=== PATIENT | male | born 1935 | race Caucasian/White ===

== ENCOUNTER 2017-02-01 15:02 | Emergency (ER) | payer MEDICARE, OTHER ==
--- NOTE | 2017-02-01 14:46 | EDM.PDOC ---
ED HPI GENERAL MEDICAL PROBLEM - General Chief Complaint: Cardiovascular Problem Stated Complaint: IN BY AMBULANCE Time Seen by Provider: 02/01/17 14:45 Source of Information: Reports: Patient, EMS, Old Records, RN, RN Notes Reviewed History Limitations: Reports: No Limitations - History of Present Illness INITIAL COMMENTS - FREE TEXT/NARRATIVE: Arrives from home by ambulance with report that pt's defibrillator fired while he was mowing the lawn. Pt states that just before it fired he suddenly felt nauseated, then lightheaded, and then "boom" it shocked him. Pt states he fell and layed on the lawn until the ambulance came. He denies chest pain or shortness of breath. He took Aspirin 325mg this morning. After the defib. fired he took a Nitro. 0.4mg SL x1. Pt states that now he feels completely normal. 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 AICD is a [employer] Onset: Sudden Duration: Resolved Prior to Arrival Location: Reports: Chest Improves with: Reports: None Worsens with: Reports: None Context: Reports: Activity Associated Symptoms: Reports: No Other Symptoms Treatments MANAGER REAL ESTATE: Reports: Aspirin, Nitroglycerin - Related Data Allergies Allergy/AdvReac Type Severity Reaction Status Date / Time No Known Allergies Allergy Verified 02/01/17 15:16 Home Meds: Home Meds B/P Pill 08/02/14 [History] Cholesterol Pill 08/02/14 [History] Past Medical History HEENT History: Reports: Impaired Vision Cardiovascular History: Reports: Arrhythmia, Automatic Implantable Cardioverter Defibrillators, Bypass, CAD, Heart Failure, High Cholesterol, Hypertension, Pacemaker - Past Surgical History Cardiovascular Surgical History: Reports: AICD, Coronary Artery Bypass Social & Family History - Family History Family Medical History: Noncontributory - Tobacco Use Smoking Status *Q: Never Smoker Second Hand Smoke Exposure: No - Caffeine Use Caffeine Use: Reports: Coffee - Recreational Drug Use Recreational Drug Use: No - Living Situation & Occupation Living situation: Reports: , with Spouse Occupation: Retired ED ROS GENERAL - Review of Systems Review Of Systems: ROS reveals no pertinent complaints other than HPI. ED EXAM, GENERAL - Physical Exam Exam: See Below Exam Limited By: No Limitations General Appearance: Alert, WD/WN, No Apparent Distress Eye Exam: Bilateral Eye: Normal Inspection Ears: Normal External Exam, Hearing Grossly Normal Nose: Normal Inspection, Normal Mucosa, No Blood Throat/Mouth: Normal Inspection, Normal Lips, Normal Teeth, Normal Gums, Normal Oropharynx, Normal Voice, No Airway Compromise Head: Atraumatic, Normocephalic Neck: Normal Inspection, Supple, Non-Tender, Full Range of Motion Respiratory/Chest: No Respiratory Distress, Lungs Clear, Normal Breath Sounds, No Accessory Muscle Use, Chest Non-Tender Cardiovascular: Normal Peripheral Pulses, Regular Rate, Rhythm, No Edema, No Gallop, No JVD, No Murmur, No Rub GI/Abdominal: Normal Bowel Sounds, Soft, Non-Tender, No Organomegaly, No Distention, No Abnormal Bruit Back Exam: Normal Inspection Extremities: Normal Inspection, Normal Range of Motion, Non-Tender, Normal Capillary Refill, No Pedal Edema Neurological: Alert, Oriented, CN II-XII Intact, Normal Cognition, Normal Gait, No Motor/Sensory Deficits Psychiatric: Normal Affect, Normal Mood Skin Exam: Warm, Dry, Intact, Normal Color, No Rash EKG INTERPRETATION EKG Date: 02/01/17 Time: 14:46 Rhythm: other (SR) Rate (beats/min): 76 [place]: normal P-wave: present QRS: LBBB ST-T: normal QT: normal NJ/PQ Interval: borderline prolongation of NJ interval Comparison: NA - no prior EKG Course - Vital Signs Last Recorded V/S: Last Vital Signs Temp 35.9 C 02/01/17 15:02 Pulse 79 02/01/17 15:02 Resp 13 02/01/17 15:02 BP 122/74 02/01/17 15:02 Pulse Ox 97 02/01/17 15:02 - Orders/Labs/Meds Orders: Active Orders 24 hr Category Date Time Status EKG 12 Lead [EKG Documentation Completion] [RC] STAT Care 02/01/17 14:46 Active Peripheral IV Care [RC] . DIRECTED Care 02/01/17 14:46 Active UA W/MICROSCOPIC [URIN] Stat Lab 02/01/17 14:46 Uncollected Sodium Chloride 0.9% [Saline Flush] Med 02/01/17 14:46 Active 10 ml FLUSH ASDIRECTED PRN Peripheral IV Insertion Adult [OM.PC] Stat Oth 02/01/17 14:46 Ordered Medication Orders Sodium Chloride (Saline Flush) 10 ml FLUSH ASDIRECTED PRN PRN Reason: Keep Vein Open Labs: Laboratory Tests 02/01/17 02/01/17 02/01/17 Range/Units 14:53 14:53 14:53 WBC 6.0 (5.0-10.0) 10^3/uL RBC 3.93 L (4.6-6.2) 10^6/uL Hgb 12.9 L (14.0-18.0) g/dL Hct 37.3 L (40.0-54.0) % MCV 94.9 (80-100) fL MCH 32.8 (27.0-34.0) pg MCHC 34.6 (33.0-35.0) g/dL Plt Count 177 (150-450) 10^3/uL Neut % (Auto) 52.8 (42.2-75.2) % Lymph % (Auto) 33.3 (20.5-50.1) % [place] % (Auto) 9.9 H (2-8) % Eos % (Auto) 3.5 H (1.0-3.0) % Baso % (Auto) 0.5 (0.0-1.0) % PT 10.4 (9.0-12.0) SEC INR 1.0 (0.9-1.2) APTT 24.8 (22.0-34.0) SEC Sodium 138 (135-145) mmol/L Potassium 3.5 L (3.6-5.0) mmol/L Chloride 103 (101-111) mmol/L Carbon Dioxide 26.0 (21.0-31.0) mmol/L Anion Gap 12.5 BUN 24 H (7-18) mg/dL Creatinine 1.1 (0.6-1.3) mg/dL Est Cr Clr Drug Dosing 59.77 mL/min Estimated GFR (MDRD) > 60 BUN/Creatinine Ratio 21.81 Glucose 186 H (74-105) mg/dL Calcium 8.5 (8.4-10.2) mg/dl Total Bilirubin 1.5 H (0.2-1.0) mg/dL AST 24 (10-42) IU/L ALT 16 (10-60) IU/L Alkaline Phosphatase 57 (42-121) IU/L Troponin I 0.02 (0.00-0.02) ng/ml B-Natriuretic Peptide 215 H (0-100) pg/ml Total Protein 6.5 L (6.7-8.2) g/dl Albumin 3.7 (3.2-5.5) g/dl Globulin 2.8 Albumin/Globulin Ratio 1.32 Meds: Medications Generic Name Dose Route Start Last Admin Trade Name Freq PRN Reason Stop Dose Admin Sodium Chloride 10 ml 02/01/17 14:46 Saline Flush FLUSH ASDIRECTED PRN Keep Vein Open Discontinued Medications Generic Name Dose Route Start Last Admin Trade Name Freq PRN Reason Stop Dose Admin Metoprolol Succinate 100 mg 02/01/17 15:43 Toprol Xl PO 02/01/17 15:44 ONETIME ONE - Radiology Interpretation Free Text/Narrative:: CXR: cardiomegaly, AICD, sternotomy wires, no acute process per Rad. report. 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 Pt refuses to be transferred to [facility]. Departure - Departure Time of Disposition: 15:40 Disposition: DC/Tfer to Acute Hospital 02 Reason for Transfer *Q: Primary PCI Indicated Condition: serious Clinical Impression: AICD discharge Arrhythmia Qualifiers: Arrhythmia type: unspecified cardiac arrhythmia Qualified Code(s): I49.9 - Cardiac arrhythmia, unspecified CAD (coronary artery disease) Qualifiers: Coronary Disease-Associated Artery/Lesion type: unspecified vessel or lesion type [place] vs. transplanted heart: [place] heart Associated angina: angina presence unspecified Qualified Code(s): I25.10 - Atherosclerotic heart disease of [place] coronary artery without angina pectoris Forms: ED Department Discharge, Interfacility Transfer EMTALA - My Orders Last 24 Hours: My Active Orders 02/01/17 14:46 EKG 12 Lead [EKG Documentation Completion] [RC] STAT Peripheral IV Care [RC] . DIRECTED UA W/MICROSCOPIC [URIN] Stat Sodium Chloride 0.9% [Saline Flush] 10 ml FLUSH ASDIRECTED PRN Peripheral IV Insertion Adult [OM.PC] Stat - Assessment/Plan Last 24 Hours: My Active Orders 02/01/17 14:46 EKG 12 Lead [EKG Documentation Completion] [RC] STAT Peripheral IV Care [RC] . DIRECTED UA W/MICROSCOPIC [URIN] Stat Sodium Chloride 0.9% [Saline Flush] 10 ml FLUSH ASDIRECTED PRN Peripheral IV Insertion Adult [OM.PC] Stat
[~2017-02-01 15:02] MED LIST: Sodium Chloride 0.9% 10 ML Syringe FLUSH PRN
--- NOTE | 2017-02-01 15:24 | CR ---
Clinical history: 81-year-old male chest pain. 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 Cardiac leads intact and no current cephalization of vascular flow, signs of alveolar edema or dependent pleural effusion. No lung mass, hilar lymphadenopathy or focal lobar pneumonia. No pneumothorax. CONCLUSION: No acute new cardiopulmonary abnormality since 18 October 2016 exam
[2017-02-01 15:29] LABS: CHLORIDE,CL 103 mmol/L (101-111); SODIUM,NA 138 mmol/L (135-145)
[2017-02-01] MEDS ORDERED: Metoprolol Succinate 50 MG Tab.ER PO ONE (15:43)
[2017-02-01 15:59] VITALS: BP 103/62
--- NOTE | 2017-02-02 14:51 | EKG ---
02/01/2017- RYAN HAAS - EKG per my reading shows left bundle-branch block with sinus rhythm. [facility] /[id number]
== END 2017-02-01 16:45 ==
LOC: DL.ED 15:02
DX: I49.9 Cardiac arrhythmia, unspecified (principal); I25.810 Atherosclerosis of coronary artery bypass graft(s) without angina pectoris; I11.0 Hypertensive heart disease with heart failure; I50.9 Heart failure, unspecified; E78.00 Pure hypercholesterolemia, unspecified; Z45.02 Encounter for adjustment and management of automatic implantable cardiac defibrillator
CPT/HCPCS: 36415; 71010; 80053; 81001; 83880; 84484; 85025; 85610; 85730; 93005; 93010; 99285; A9270; 99283

== ENCOUNTER 2017-03-12 14:23 | Emergency (ER) | payer MEDICARE, OTHER ==
--- NOTE | 2017-03-12 14:37 | EDM.PDOC ---
ED HPI GENERAL MEDICAL PROBLEM - General Chief Complaint: Cardiovascular Problem Stated Complaint: [id number] DEFIBULATOR WENT OFF BLOOD PRESSURE CHECK Time Seen by Provider: 03/12/17 14:25 Source of Information: Reports: Patient History Limitations: Reports: No Limitations - History of Present Illness INITIAL COMMENTS - FREE TEXT/NARRATIVE: This 81 yo male patient reports to the ED due to his AICD going off. The patient reports he was sitting in a chair at the time of the discharge. The patient had a similar incident on 02/01/17. 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 Har[facility] in [place]. Onset: Today Onset Date: 03/12/17 Onset Time: 13:00 Duration: Resolved Prior to Arrival Location: Reports: Chest Quality: Reports: Ache, Dull Severity: Moderate Improves with: Reports: None Worsens with: Reports: None Associated Symptoms: Reports: No Other Symptoms - Related Data Allergies Allergy/AdvReac Type Severity Reaction Status Date / Time No Known Allergies Allergy Verified 02/01/17 15:16 Home Meds: Home Meds Aspirin 325 mg PO DAILY 02/01/17 [History] Lisinopril/Hydrochlorothiazide [Lisinopril-Hctz 20-12.5 mg Tab] 1 tab PO DAILY 02/01/17 [History] Melatonin 1 tab PO DAILY 02/01/17 [History] Metoprolol Succinate [Toprol XL] 100 mg PO BID 02/01/17 [History] Multivitamin with Minerals [Multiple Vitamin] 1 tab PO DAILY 02/01/17 [History] Nitroglycerin [Nitrostat] 1 tab SL ASDIRECTED 02/01/17 [History] PARoxetine HCl [Paroxetine HCl] 30 mg PO DAILY 02/01/17 [History] Rosuvastatin Calcium 40 mg PO DAILY 02/01/17 [History] Tamsulosin [Flomax] 0.4 mg PO DAILY 02/01/17 [History] Past Medical History HEENT History: Reports: Impaired Vision Cardiovascular History: Reports: Arrhythmia, Automatic Implantable Cardioverter Defibrillators, Bypass, CAD, Heart Failure, High Cholesterol, Hypertension, Pacemaker - Past Surgical History Cardiovascular Surgical History: Reports: AICD, Coronary Artery Bypass Social & Family History - Family History Family Medical History: Noncontributory - Tobacco Use Smoking Status *Q: Never Smoker Second Hand Smoke Exposure: No - Caffeine Use Caffeine Use: Reports: Coffee - Recreational Drug Use Recreational Drug Use: No - Living Situation & Occupation Living situation: Reports: , with Spouse Occupation: Retired ED ROS GENERAL - Review of Systems Review Of Systems: ROS reveals no pertinent complaints other than HPI. ED EXAM, GENERAL - Physical Exam Exam: See Below Exam Limited By: No Limitations General Appearance: Alert, WD/WN, No Apparent Distress Eye Exam: Bilateral Eye: EOMI, Normal Inspection, PERRL Ears: Normal External Exam, Normal Canal, Hearing Grossly Normal, Normal TMs Nose: Normal Inspection, Normal Mucosa, No Blood Throat/Mouth: Normal Inspection, Normal Lips, Normal Teeth, Normal Gums, Normal Oropharynx, Normal Voice, No Airway Compromise Head: Atraumatic, Normocephalic Neck: Normal Inspection, Supple, Non-Tender, Full Range of Motion Respiratory/Chest: No Respiratory Distress, Lungs Clear, Normal Breath Sounds, No Accessory Muscle Use, Chest Non-Tender Cardiovascular: Normal Peripheral Pulses, Regular Rate, Rhythm, No Edema, No Gallop, No JVD, No Murmur, No Rub GI/Abdominal: Normal Bowel Sounds, Soft, Non-Tender, No Organomegaly, No Distention, No Abnormal Bruit, No Mass (Male) Exam: Deferred Rectal (Males) Exam: Deferred Back Exam: Normal Inspection, Full Range of Motion, NT Extremities: Normal Inspection, Normal Range of Motion, Non-Tender, Normal Capillary Refill, No Pedal Edema Neurological: Alert, Oriented, CN II-XII Intact, Normal Cognition, Normal Gait, Normal Reflexes, No Motor/Sensory Deficits Psychiatric: Normal Affect, Normal Mood Skin Exam: Warm, Dry, Intact, Normal Color, No Rash Lymphatic: No Adenopathy Course - Vital Signs Last Recorded V/S: Last Vital Signs Temp 35.9 C 03/12/17 14:46 Pulse 62 03/12/17 14:46 Resp 24 H 03/12/17 14:46 BP 149/93 H 03/12/17 14:46 Pulse Ox 96 03/12/17 14:46 - Orders/Labs/Meds Orders: Active Orders 24 hr Category Date Time Status EKG Documentation Completion [RC] URGENT Care 03/12/17 14:35 Active Labs: Laboratory Tests 03/12/17 03/12/17 03/12/17 Range/Units 14:50 14:50 14:50 WBC 6.2 (5.0-10.0) 10^3/uL RBC 4.03 L (4.6-6.2) 10^6/uL Hgb 13.5 L (14.0-18.0) g/dL Hct 38.6 L (40.0-54.0) % MCV 95.8 (80-100) fL MCH 33.5 (27.0-34.0) pg MCHC 35.0 (33.0-35.0) g/dL Plt Count 159 (150-450) 10^3/uL Neut % (Auto) 67.1 (42.2-75.2) % Lymph % (Auto) 20.4 L (20.5-50.1) % [place] % (Auto) 9.6 H (2-8) % Eos % (Auto) 2.4 (1.0-3.0) % Baso % (Auto) 0.5 (0.0-1.0) % Sodium 136 (135-145) mmol/L Potassium 3.7 (3.6-5.0) mmol/L Chloride 99 L (101-111) mmol/L Carbon Dioxide 25.0 (21.0-31.0) mmol/L Anion Gap 15.7 BUN 17 (7-18) mg/dL Creatinine 1.0 (0.6-1.3) mg/dL Est Cr Clr Drug Dosing 65.74 mL/min Estimated GFR (MDRD) > 60 BUN/Creatinine Ratio 17.00 Glucose 185 H (74-105) mg/dL Calcium 8.8 (8.4-10.2) mg/dl Magnesium 1.7 L (1.8-2.5) mg/dL Total Bilirubin 1.8 H (0.2-1.0) mg/dL AST 27 (10-42) IU/L ALT 18 (10-60) IU/L Alkaline Phosphatase 57 (42-121) IU/L Troponin I 0.02 (0.00-0.02) ng/ml Total Protein 6.5 L (6.7-8.2) g/dl Albumin 3.8 (3.2-5.5) g/dl Globulin 2.7 Albumin/Globulin Ratio 1.41 Departure - Departure Time of Disposition: 16:20 Disposition: DC/Tfer to [facility] 02 Reason for Transfer *Q: Other Condition: Fair Clinical Impression: AICD discharge Forms: Interfacility Transfer EMTALA Care Plan Goals: Discussed the history, examination, EKG and lab results with Dr. Magaña (Cardiology ) and Dr. Escalera (Hospitalist) in [facility]. Dr. Escalera accepted the patient for continued evaluation and management. The patient will be transported by [facility]. - My Orders Last 24 Hours: My Active Orders 03/12/17 14:35 EKG Documentation Completion [RC] URGENT - Assessment/Plan Last 24 Hours: My Active Orders 03/12/17 14:35 EKG Documentation Completion [RC] URGENT
[2017-03-12 15:19] LABS: CHLORIDE,CL 99 mmol/L (101-111); SODIUM,NA 136 mmol/L (135-145)
--- NOTE | 2017-03-12 15:30 | CR ---
CLINICAL HISTORY: 81-year-old male emergency department (defibrillator "went off"). INTERPRETATION: AP portable chest film reveals chronic borderline cardiomegaly without new signs of alveolar edema or dependent pleural effusion (heart failure). Cardiac pacemaker leads intact in this patient with sternotomy wires. The position of the pacer lead s unchanged since 22 February 2017 exam. Small nodule in the periphery of the right chest also unchanged, i.e., probable granuloma. No new lung mass, hilar lymphadenopathy or focal lobar pneumonia. No atelectasis/collapse. No pneumo thorax. CONCLUSION: No acute new cardiopulmonary abnormality.
[2017-03-12 16:16] VITALS: BP 163/91
--- NOTE | 2017-03-13 19:20 | EKG ---
03/12/2017 - RYAN HAAS I reviewed the EKG and agree with the machine's reading. [facility] /[id number]
== END 2017-03-12 16:50 ==
LOC: DL.ED 14:23
DX: T82.198A Other mechanical complication of other cardiac electronic device, initial encounter (principal); H54.7 Unspecified visual loss; E78.00 Pure hypercholesterolemia, unspecified; I11.0 Hypertensive heart disease with heart failure; I50.9 Heart failure, unspecified; I25.10 Atherosclerotic heart disease of native coronary artery without angina pectoris; Z79.82 Long term (current) use of aspirin; Z79.899 Other long term (current) drug therapy; Z95.1 Presence of aortocoronary bypass graft
CPT/HCPCS: 36415; 71010; 80053; 83735; 84484; 85025; 93005; 93010; 99285

== ENCOUNTER 2017-04-13 07:36 | Emergency (ER) | payer MEDICARE, OTHER ==
[2017-04-13] MEDS ORDERED: methylPREDNISolone Sodium Succinate 125 MG/2 ML SDV IVPUSH ONE (07:39)
[2017-04-13] MEDS ORDERED: diphenhydrAMINE 50 MG/ML SDV IVPUSH ONE (07:39)
--- NOTE | 2017-04-13 08:20 | EDM.PDOC ---
ED HPI GENERAL MEDICAL PROBLEM - General Chief Complaint: Allergic Reaction Stated Complaint: ALLERGIC REACTION, TONGUE SWOLLEN Time Seen by Provider: 04/13/17 07:36 Source of Information: Reports: Patient History Limitations: Reports: No Limitations - History of Present Illness INITIAL COMMENTS - FREE TEXT/NARRATIVE: This 81 yo male patient reports to the ED with swelling of his tongue and increased difficulties breathing. The patient reports he was started on Amiodarone about 1 month ago and has been taking it on a regular basis. This morning at 0500 the patient started to notice some swelling of his tongue. The patient reports no history of allergic reactions in the past. The patient reports no known bites or stings. The patient has not eaten any different foods and has not taken any new medications. Onset: Today Onset Date: 04/13/17 Onset Time: 05:00 Duration: Constant, Getting Worse Location: Reports: Face Quality: Reports: Dull, Pressure Severity: Severe Improves with: Reports: None Worsens with: Reports: None Context: Reports: Other Associated Symptoms: Reports: Other - Related Data Allergies Allergy/AdvReac Type Severity Reaction Status Date / Time No Known Allergies Allergy Verified 04/13/17 08:04 Home Meds: Home Meds Aspirin 325 mg PO DAILY 02/01/17 [History] Lisinopril/Hydrochlorothiazide [Lisinopril-Hctz 20-12.5 mg Tab] 2 tab PO DAILY 02/01/17 [History] Melatonin 1 tab PO DAILY 02/01/17 [History] Metoprolol Succinate [Toprol XL] 100 mg PO BID 02/01/17 [History] Multivitamin with Minerals [Multiple Vitamin] 1 tab PO DAILY 02/01/17 [History] Nitroglycerin [Nitrostat] 1 tab SL ASDIRECTED 02/01/17 [History] PARoxetine HCl [Paroxetine HCl] 30 mg PO DAILY 02/01/17 [History] Rosuvastatin Calcium 40 mg PO DAILY 02/01/17 [History] Tamsulosin [Flomax] 0.4 mg PO DAILY 02/01/17 [History] Amiodarone [Cordarone] 400 mg PO DAILY 04/13/17 [History] Magnesium Oxide [Magnesium] 400 mg PO DAILY 04/13/17 [History] Potassium Chloride 10 meq PO DAILY 04/13/17 [History] Past Medical History HEENT History: Reports: Impaired Vision Cardiovascular History: Reports: Arrhythmia, Automatic Implantable Cardioverter Defibrillators, Bypass, CAD, Heart Failure, High Cholesterol, Hypertension, Pacemaker Respiratory History: Reports: COPD - Past Surgical History Cardiovascular Surgical History: Reports: AICD, Coronary Artery Bypass Social & Family History - Family History Family Medical History: Noncontributory - Tobacco Use Smoking Status *Q: Never Smoker Second Hand Smoke Exposure: No - Caffeine Use Caffeine Use: Reports: Coffee - Alcohol Use Days Per Week of Alcohol Use: 3 Number of Drinks Per Day: 1 Total Drinks Per Week: 3 - Recreational Drug Use Recreational Drug Use: No - Living Situation & Occupation Living situation: Reports: , with Spouse Occupation: Retired ED ROS ALLERGIC REACTION - Review of Systems Review Of Systems: ROS reveals no pertinent complaints other than HPI. ED EXAM GENERAL NO PERIP PULSE - Physical Exam Exam: See Below Exam Limited By: No Limitations General Appearance: Alert, WD/WN, Moderate Distress Eye Exam: Bilateral Eye: EOMI, Normal Inspection, PERRL Ears: Normal External Exam, Normal Canal, Hearing Grossly Normal, Normal TMs Nose: Normal Inspection, Normal Mucosa, No Blood Throat/Mouth: Other (The patient's tongue was swollen outside ) Head: Atraumatic, Normocephalic Neck: Normal Inspection, Supple, Non-Tender, Full Range of Motion Respiratory/Chest: No Respiratory Distress, Lungs Clear, Normal Breath Sounds, No Accessory Muscle Use, Chest Non-Tender Cardiovascular: No Edema, No Gallop, No JVD, No Murmur, No Rub, Bradycardia GI/Abdominal: Normal Bowel Sounds, Soft, Non-Tender, No Organomegaly, No Distention, No Abnormal Bruit, No Mass (Male) Exam: Deferred Rectal (Males) Exam: Deferred Back Exam: Normal Inspection, Full Range of Motion, NT Extremities: Normal Inspection, Normal Range of Motion, Non-Tender, Normal Capillary Refill, No Pedal Edema Neurological: Alert, Oriented, CN II-XII Intact, Normal Cognition, Normal Gait, Normal Reflexes, No Motor/Sensory Deficits Psychiatric: Normal Affect, Normal Mood Skin Exam: Warm, Intact, Normal Color, No Rash Lymphatic: No Adenopathy Course - Vital Signs Last Recorded V/S: Last Vital Signs Temp 36.3 C 04/13/17 07:36 Pulse 48 L 04/13/17 07:45 Resp 14 04/13/17 08:30 BP 166/71 H 04/13/17 08:30 Pulse Ox 95 04/13/17 08:30 - Orders/Labs/Meds Meds: Medications Discontinued Medications Generic Name Dose Route Start Last Admin Trade Name Janet PRN Reason Stop Dose Admin Diphenhydramine HCl 50 mg 04/13/17 07:39 04/13/17 07:38 Benadryl IVPUSH 04/13/17 07:40 50 mg ONETIME ONE Administration Methylprednisolone Sodium Succinate 125 mg 04/13/17 07:39 04/13/17 07:38 Solu-Medrol IVPUSH 04/13/17 07:40 125 mg ONETIME ONE Administration Departure - Departure Time of Disposition: 09:43 Disposition: Home, Self-Care 01 Condition: Fair Clinical Impression: Angioedema Qualifiers: Encounter type: initial encounter Qualified Code(s): T78.3XXA - Angioneurotic edema, initial encounter - Discharge Information Instructions: Angioedema, [id number] Forms: ED Department Discharge Care Plan Goals: The patient was advised of the examination results during the visit. The patient was given IV Benadryl and IV Solu-Medrol while in the ED. The patient reports feeling better after the medications. The patient was discharged with a script for Prednisone (20 mg) #10 to take 2 by mouth daily for 5 days and Femotidine (20 mg) #20 to take 1 by mouth 2 times per day for 10 days. If the patient has any additional symptoms or concerns, the patient should follow-up with his primary care facility or return to the emergency department.
[2017-04-13 09:20] VITALS: BP 166/71
[2017-04-13] MEDS ORDERED: Famotidine 20 MG Tab PO ONE (09:47)
== END 2017-04-13 10:03 | disposition home or self-care (01) ==
LOC: DL.ED 07:36
DX: T78.3XXA Angioneurotic edema, initial encounter (principal); H54.7 Unspecified visual loss; J44.9 Chronic obstructive pulmonary disease, unspecified; I11.0 Hypertensive heart disease with heart failure; I50.9 Heart failure, unspecified; I25.10 Atherosclerotic heart disease of native coronary artery without angina pectoris; E78.00 Pure hypercholesterolemia, unspecified; Z79.82 Long term (current) use of aspirin; Z79.899 Other long term (current) drug therapy; Z95.1 Presence of aortocoronary bypass graft
CPT/HCPCS: 96374; 96375; 99284; A9270; J1200; J2930

== ENCOUNTER 2017-04-25 09:36 | Emergency (ER) | payer MEDICARE, OTHER ==
[2017-04-25 09:46] VITALS: BP 159/91
[2017-04-25] MEDS ORDERED: Oxymetazoline 0.05% Nasal Spray 15 ML Bottle NAS ONE (11:41)
--- NOTE | 2017-04-25 12:13 | EDM.PDOC ---
ED HPI GENERAL MEDICAL PROBLEM - General Chief Complaint: ENT Problem Stated Complaint: [id number] NOSE BLEED Time Seen by Provider: 04/25/17 12:07 Source of Information: Reports: Patient History Limitations: Reports: No Limitations - History of Present Illness INITIAL COMMENTS - FREE TEXT/NARRATIVE: 81 yo male presents with intermittent nose bleed x 2 hours. States that he is having a hard time controlling it so he came in. Denies lightheadedness or dizziness. No other complaints Onset: Today, Sudden Duration: Intermittent Location: Reports: Face Quality: Reports: Ache Severity: Mild Improves with: Reports: Other (pressure) Worsens with: Reports: Movement Associated Symptoms: Reports: No Other Symptoms - Related Data Allergies Allergy/AdvReac Type Severity Reaction Status Date / Time atorvastatin [From Lipitor] Allergy Pain Verified 04/25/17 09:46 Home Meds: Home Meds Aspirin 325 mg PO DAILY 02/01/17 [History] Lisinopril/Hydrochlorothiazide [Lisinopril-Hctz 20-12.5 mg Tab] 2 tab PO DAILY 02/01/17 [History] Melatonin 1 tab PO DAILY 02/01/17 [History] Metoprolol Succinate [Toprol XL] 100 mg PO BID 02/01/17 [History] Multivitamin with Minerals [Multiple Vitamin] 1 tab PO DAILY 02/01/17 [History] Nitroglycerin [Nitrostat] 1 tab SL ASDIRECTED 02/01/17 [History] PARoxetine HCl [Paroxetine HCl] 30 mg PO DAILY 02/01/17 [History] Rosuvastatin Calcium 40 mg PO DAILY 02/01/17 [History] Tamsulosin [Flomax] 0.4 mg PO DAILY 02/01/17 [History] Amiodarone [Cordarone] 400 mg PO DAILY 04/13/17 [History] Magnesium Oxide [Magnesium] 400 mg PO BID 04/13/17 [History] Potassium Chloride 10 meq PO DAILY 04/13/17 [History] Past Medical History HEENT History: Reports: Impaired Vision Cardiovascular History: Reports: Arrhythmia, Automatic Implantable Cardioverter Defibrillators, Bypass, CAD, Heart Failure, High Cholesterol, Hypertension, Pacemaker Respiratory History: Reports: COPD Gastrointestinal History: Reports: None Genitourinary History: Reports: None Musculoskeletal History: Reports: None Neurological History: Reports: None Psychiatric History: Reports: None Endocrine/Metabolic History: Reports: None Hematologic History: Reports: None Immunologic History: Reports: None Oncologic (Cancer) History: Reports: None Dermatologic History: Reports: None - Infectious Disease History Infectious Disease History: Reports: Measles - Past Surgical History Cardiovascular Surgical History: Reports: AICD, Coronary Artery Bypass Social & Family History - Family History Family Medical History: Noncontributory - Tobacco Use Smoking Status *Q: Never Smoker Second Hand Smoke Exposure: No - Caffeine Use Caffeine Use: Reports: Coffee - Alcohol Use Days Per Week of Alcohol Use: 3 Number of Drinks Per Day: 1 Total Drinks Per Week: 3 - Recreational Drug Use Recreational Drug Use: No - Living Situation & Occupation Living situation: Reports: , with Spouse Occupation: Retired ED ROS ENT - Review of Systems Review Of Systems: ROS reveals no pertinent complaints other than HPI. ED EXAM, ENT - Physical Exam Exam: See Below Exam Limited By: No Limitations General Appearance: Alert, WD/WN, No Apparent Distress Nose: Active Bleeding (no septal injury noted, unable to identify bleeding vessel. Direct pressure applied) Mouth/Throat: Normal Inspection, Normal Gums, Normal Lips, Normal Oropharynx, Normal Teeth Head: Atraumatic, Normocephalic Respiratory/Chest: No Respiratory Distress, Lungs Clear, Normal Breath Sounds, No Accessory Muscle Use, Chest Non-Tender Cardiovascular: Normal Peripheral Pulses, Regular Rate, Rhythm, No Edema, No Gallop, No JVD, No Murmur, No Rub Neurological: Alert, Oriented, CN II-XII Intact, Normal Cognition, Normal Gait, No Motor/Sensory Deficits Course - Vital Signs Last Recorded V/S: Last Vital Signs Temp 97 F 04/25/17 09:41 Pulse 55 L 04/25/17 09:41 Resp 16 04/25/17 09:41 BP 159/91 H 04/25/17 09:41 Pulse Ox 98 04/25/17 09:41 - Orders/Labs/Meds Labs: Laboratory Tests 04/25/17 04/25/17 Range/Units 10:58 10:58 WBC 9.1 (5.0-10.0) 10^3/uL RBC 4.40 L (4.6-6.2) 10^6/uL Hgb 14.5 (14.0-18.0) g/dL Hct 43.1 (40.0-54.0) % MCV 98.0 (80-100) fL MCH 33.0 (27.0-34.0) pg MCHC 33.6 (33.0-35.0) g/dL Plt Count 164 (150-450) 10^3/uL Neut % (Auto) 75.6 H (42.2-75.2) % Lymph % (Auto) 12.8 L (20.5-50.1) % [place] % (Auto) 9.0 H (2-8) % Eos % (Auto) 2.3 (1.0-3.0) % Baso % (Auto) 0.3 (0.0-1.0) % Sodium 142 (135-145) mmol/L Potassium 4.7 (3.6-5.0) mmol/L Chloride 101 (101-111) mmol/L Carbon Dioxide 29.0 (21.0-31.0) mmol/L Anion Gap 16.7 BUN 20 H (7-18) mg/dL Creatinine 1.3 (0.6-1.3) mg/dL Est Cr Clr Drug Dosing 50.57 mL/min Estimated GFR (MDRD) 53 Glucose 153 H (74-105) mg/dL Calcium 9.5 (8.4-10.2) mg/dl Meds: Medications Discontinued Medications Generic Name Dose Route Start Last Admin Trade Name Janet PRN Reason Stop Dose Admin Oxymetazoline HCl 1 ml 04/25/17 11:41 04/25/17 11:49 Afrin Original 0.05% Nasal Henriette SELMA 04/25/17 11:42 1 ml ONETIME ONE Administration - Re-Assessments/Exams Free Text/Narrative Re-Assessment/Exam: 04/25/17 12:10 Applied direct pressure with successful cessation of bleeding Departure - Departure Time of Disposition: 12:10 Disposition: Home, Self-Care 01 Condition: Good Clinical Impression: Epistaxis - Discharge Information Instructions: Nosebleed Referrals: Odilon Healy MD [Primary Care Provider] - Additional Instructions: Keep nasal passages moist as to decrease risk of bleeding. try not to blow your nose the next few days. use the afrin spray every 12 hours as needed for dryness for the next 3 days. Use petroleum gauze/tissue to keep nasal passages moist in between the spray. If bleeding returns, use direct pressure to stop. Return for any worsening symptoms or uncontrolled bleeding.
== END 2017-04-25 12:15 | disposition home or self-care (01) ==
LOC: DL.ED 09:36
DX: R04.0 Epistaxis (principal); H54.7 Unspecified visual loss; E78.00 Pure hypercholesterolemia, unspecified; I11.0 Hypertensive heart disease with heart failure; I50.9 Heart failure, unspecified; Z95.1 Presence of aortocoronary bypass graft; Z88.8 Allergy status to other drugs, medicaments and biological substances; Z79.899 Other long term (current) drug therapy; Z79.82 Long term (current) use of aspirin
CPT/HCPCS: 36415; 80048; 85025; 99284; A9270

== ENCOUNTER 2017-06-15 12:18 | Emergency (ER) | payer MEDICARE, OTHER ==
[2017-06-15 13:33] VITALS: BP 134/63
--- NOTE | 2017-06-15 13:49 | EDM.PDOC ---
ED HPI GENERAL MEDICAL PROBLEM - General Chief Complaint: Syncope Stated Complaint: SENT FROM [facility] Time Seen by Provider: 06/15/17 12:42 Source of Information: Reports: Patient, Provider (Dr. Aguilar) History Limitations: Reports: No Limitations - History of Present Illness INITIAL COMMENTS - FREE TEXT/NARRATIVE: 81 yo white male w/ PMHx. Ischemic Cardiomyopathy w/ ICD implanted stated that yesterday while pumping gas he became un-responsive X few seconds. Denies CP Denies Dizziness and Denies SOB Onset Date: 06/14/17 Onset Time: 12:00 Duration: Day(s): Location: Reports: Generalized Severity: Moderate Improves with: Reports: None Worsens with: Reports: None Context: Reports: Other (PMHx. Ischemic Cardiomyopathy ) Associated Symptoms: Reports: Syncope - Related Data Allergies Allergy/AdvReac Type Severity Reaction Status Date / Time atorvastatin [From Lipitor] Allergy Pain Verified 06/15/17 12:58 Home Meds: Home Meds Aspirin 325 mg PO DAILY 02/01/17 [History] Lisinopril/Hydrochlorothiazide [Lisinopril-Hctz 20-12.5 mg Tab] 2 tab PO DAILY 02/01/17 [History] Melatonin 1 tab PO DAILY 02/01/17 [History] Metoprolol Succinate [Toprol XL] 100 mg PO BID 02/01/17 [History] Multivitamin with Minerals [Multiple Vitamin] 1 tab PO DAILY 02/01/17 [History] Nitroglycerin [Nitrostat] 1 tab SL ASDIRECTED 02/01/17 [History] PARoxetine HCl [Paroxetine HCl] 30 mg PO DAILY 02/01/17 [History] Rosuvastatin Calcium 40 mg PO DAILY 02/01/17 [History] Tamsulosin [Flomax] 0.4 mg PO DAILY 02/01/17 [History] Amiodarone [Cordarone] 400 mg PO DAILY 04/13/17 [History] Magnesium Oxide [Magnesium] 400 mg PO BID 04/13/17 [History] Potassium Chloride 10 meq PO DAILY 04/13/17 [History] Budesonide/Formoterol Fumarate [Symbicort 80-4.5 Mcg Inhaler] 2 puff IH BID [History] Past Medical History HEENT History: Reports: Impaired Vision Cardiovascular History: Reports: Arrhythmia, Automatic Implantable Cardioverter Defibrillators, Bypass, CAD, Heart Failure, High Cholesterol, Hypertension, Pacemaker Respiratory History: Reports: COPD Gastrointestinal History: Reports: None Genitourinary History: Reports: None Musculoskeletal History: Reports: None Neurological History: Reports: None Psychiatric History: Reports: None Endocrine/Metabolic History: Reports: None Hematologic History: Reports: None Immunologic History: Reports: None Oncologic (Cancer) History: Reports: None Dermatologic History: Reports: None - Infectious Disease History Infectious Disease History: Reports: Measles - Past Surgical History Cardiovascular Surgical History: Reports: AICD, Coronary Artery Bypass Social & Family History - Family History Family Medical History: Noncontributory - Tobacco Use Smoking Status *Q: Never Smoker Second Hand Smoke Exposure: No - Caffeine Use Caffeine Use: Reports: Coffee - Alcohol Use Days Per Week of Alcohol Use: 3 Number of Drinks Per Day: 1 Total Drinks Per Week: 3 - Recreational Drug Use Recreational Drug Use: No - Living Situation & Occupation Living situation: Reports: , with Spouse Occupation: Retired ED ROS GENERAL - Review of Systems Review Of Systems: See Below Constitutional: Reports: No Symptoms HEENT: Reports: No Symptoms Respiratory: Reports: No Symptoms Cardiovascular: Reports: No Symptoms Endocrine: Reports: No Symptoms GI/Abdominal: Reports: No Symptoms : Reports: No Symptoms Musculoskeletal: Reports: No Symptoms Skin: Reports: No Symptoms Neurological: Reports: Syncope Psychiatric: Reports: No Symptoms Hematologic/Lymphatic: Reports: No Symptoms Immunologic: Reports: No Symptoms ED EXAM, GENERAL - Physical Exam Exam: See Below Exam Limited By: No Limitations General Appearance: Alert, No Apparent Distress Eye Exam: Bilateral Eye: EOMI, PERRL Ears: Normal External Exam Nose: Normal Inspection Throat/Mouth: Normal Inspection, Normal Lips Head: Atraumatic, Normocephalic Neck: Normal Inspection, Supple Respiratory/Chest: No Respiratory Distress, Lungs Clear Cardiovascular: Normal Peripheral Pulses, Regular Rate, Rhythm, No Edema Peripheral Pulses: 2+: Femoral (L), Femoral (R) GI/Abdominal: Normal Bowel Sounds, Soft, Non-Tender Back Exam: Normal Inspection, Full Range of Motion Extremities: Normal Inspection, Normal Range of Motion, Non-Tender Neurological: Alert, Oriented, CN II-XII Intact, Normal Cognition Psychiatric: Normal Affect, Normal Mood Skin Exam: Warm, Dry, Intact Lymphatic: No Adenopathy Course - Vital Signs Last Recorded V/S: Last Vital Signs Temp 36.6 C 10/20/17 12:38 Pulse 55 L 06/15/17 12:38 Resp 16 06/15/17 12:38 BP 141/67 H 06/15/17 12:38 Pulse Ox 96 06/15/17 12:38 Departure - Departure Time of Disposition: 13:56 Disposition: DC/Tfer to Acute Hospital 02 Reason for Transfer *Q: Primary PCI Indicated Condition: Fair Clinical Impression: Hypomagnesemia, Elevated d-dimer Syncope Qualifiers: Syncope type: unspecified Qualified Code(s): R55 - Syncope and collapse Forms: ED Department Discharge, Interfacility Transfer EMTALA
--- NOTE | 2017-06-19 11:37 | EKG ---
DATE: 06/15/2017 TIME: 12:44 p.m. EKG shows sinus bradycardia and first-degree AV block. There was also evidence of left bundle branch block. [facility] /[id number]
== END 2017-06-15 14:10 ==
LOC: DL.ED 12:18
DX: R55 Syncope and collapse (principal); E83.42 Hypomagnesemia; R79.1 Abnormal coagulation profile; E78.00 Pure hypercholesterolemia, unspecified; I10 Essential (primary) hypertension; J44.9 Chronic obstructive pulmonary disease, unspecified; Z79.82 Long term (current) use of aspirin; Z79.899 Other long term (current) drug therapy
CPT/HCPCS: 36415; 84484; 85379; 85610; 85730; 93005; 93010; 99283; 99285